=== PATIENT | male | born 1980 | race Hispanic/Latino ===

== ENCOUNTER → 2024-06-20 | Day surgery (SDC) | payer OTHER ==
[~2024-06-20] MED LIST: EPHEDRINE SULFATE INJ 50 MG/ML VIAL ONE; FOLIC ACID0.4 MG PO; GABAPENTIN300 MG PO; LACTATED RINGER'S 1,000 ML ONE; TRAZODONE HCL50 MG PO
[2024-06-20 12:54] VITALS: TEMP 97.4
[2024-06-20 13:25] VITALS: BP 121/71; PULSE 62; RESP 13; O2SAT 99
== END | disposition home or self-care (01) ==
LOC: OR 11:10
PROVIDERS: ATTEND Internal Medicine Gastroenterology
DX: K29.60 Other gastritis without bleeding (principal); K29.50 Unspecified chronic gastritis without bleeding; K20.90 Esophagitis, unspecified without bleeding; K21.9 Gastro-esophageal reflux disease without esophagitis; Z71.3 Dietary counseling and surveillance; K76.0 Fatty (change of) liver, not elsewhere classified; G89.29 Other chronic pain; Z53.20 Procedure and treatment not carried out because of patient's decision for unspecified reasons; R74.8 Abnormal levels of other serum enzymes; Z78.9 Other specified health status; Z01.810 Encounter for preprocedural cardiovascular examination; Z79.899 Other long term (current) drug therapy
CPT/HCPCS: 43239; 93005; J2470; J7121

== ENCOUNTER → 2024-07-16 | Outpatient (REF) | payer OTHER ==
[~2024-07-16] MED LIST changes: -EPHEDRINE SULFATE INJ 50 MG/ML VIAL ONE; -LACTATED RINGER'S 1,000 ML ONE
== END ==
LOC: US 10:58
PROVIDERS: ATTEND Nurse Practitioner
DX: K29.70 Gastritis, unspecified, without bleeding (principal); R74.8 Abnormal levels of other serum enzymes; K76.0 Fatty (change of) liver, not elsewhere classified; F10.90 Alcohol use, unspecified, uncomplicated
CPT/HCPCS: 76700